=== PATIENT | female | born 1965 | race Caucasian/White ===

== ENCOUNTER 2017-07-10 22:49 | Inpatient (IN) | payer BC ==
[~2017-07-10] VITALS: Ht 157.5 cm; Wt 73.5 kg
[2017-07-10] MEDS ORDERED: ASPIRIN CHEWABLE 81 MG TABLET. PO ONE (23:15)
[2017-07-10] MEDS ORDERED: NITROGLYCERIN OINT 1 GM PACKET. TP ONE (23:15)
[2017-07-10 23:19] LABS: BASO # 0.1 x10^3/uL (0.0-0.2); BASO % 1 % (0-3); EOS % 6 % (0-3); HEMATOCRIT 39.7 % (36.0-47.0); HEMOGLOBIN 13.4 g/dL (12.0-15.5); LYMPH # 2.4 x10^3/uL (1.0-4.8); LYMPH % 33 % (24-48); MEAN CORPUSCULAR HEMOGLOBIN 30 pg (25-35); MEAN CORPUSCULAR HGB CONC 34 g/dL (31-37); MEAN CORPUSCULAR VOLUME 90 fL (79-100); MONO % 6 % (0-9); NEUT % 55 % (31-73); PLATELET COUNT 214 x10^3/uL (140-400); RED BLOOD COUNT 4.41 x10^6/uL (3.50-5.40); RED CELL DISTRIBUTION WIDTH 13.5 % (11.5-14.5); WHITE BLOOD COUNT 7.3 x10^3/uL (4.0-11.0)
[2017-07-10 23:32] LABS: CREATININE 0.8 mg/dL (0.6-1.0); GFR 75.3; POTASSIUM 3.7 mmol/L (3.5-5.1)
[2017-07-10 23:38] LABS: ALBUMIN 3.7 g/dL (3.4-5.0); ALBUMIN/GLOBULIN RATIO 1.2 (1.0-1.7); TOTAL BILIRUBIN 0.2 mg/dL (0.2-1.0); TOTAL PROTEIN 6.9 g/dL (6.4-8.2)
[2017-07-11] VITALS (8 sets, daily range): BP systolic 123–146; BP diastolic 63–79
[2017-07-11] MEDS ORDERED: NITROGLYCERIN SUBLINGUAL 0.4 MG BOTTLE OF 25. SL PRN (00:15)
[2017-07-11] MEDS ORDERED: ONDANSETRON PF 4 MG/2 ML VIAL. IV PRN (00:15)
[2017-07-11] MEDS ORDERED: IBUP-1007 PO (01:12)
--- NOTE | 2017-07-11 01:15 | PHYS DOC ---
Past Medical History Past Medical History: Arrhythmia, Hypertension, Other Additional Past Medical Histor: DDD Additional Past Surgical Histo: METAL NIKOLE TO RIGHT WRIST Alcohol Use: None Drug Use: None Adult General Chief Complaint Chief Complaint: CHEST PAIN HPI HPI Patient is a 52 year old female with no past medical history who presents here today secondary to midsternal chest pressure that's been intermittent since Tuesday. Patient reports she has associated diaphoresis, dizziness, shortness of breath. Patient denies any nausea or radiating pain. Patient has a history of DJD. Patient denies any history of hypertension diabetes lung liver or kidney pals. Patient has no history of CAD or MIs. Patient has no prior surgeries. Patient does not drink or do drugs. Patient is allergic to sulfa. Patient's last menstrual period was August 2016, she is postmenopausal. Patient reports she does smoke cigarettes no family history of coronary disease that she is aware of. Review of systems: Constitutional: Denies fever or chills Eyes: Denies change in visual acuity, redness, or eye pain HENT: Denies nasal congestion or sore throat Respiratory: Denies cough or shortness of breath All other systems were reviewed and found to be within normal limits, except as documented in this note. Physical exam: Constitutional: Well developed, well nourished, no acute distress, non-toxic appearance. HENT: Normocephalic,bilateral external ears normal, oropharynx moist, no oral exudates, nose normal. Eyes: PERRLA, EOMI, conjunctiva normal, no discharge. Neck: Normal range of motion, no tenderness, supple, no stridor. Cardiovascular:Heart rate regular rhythm, no murmur Lungs & Thorax: Bilateral breath sounds clear to auscultation Abdomen: Bowel sounds normal, soft, no tenderness, no masses, no pulsatile masses. Skin: Warm, dry, no erythema, no rash. Back: No tenderness, no CVA tenderness. Extremities: No tenderness, no cyanosis, no clubbing, ROM intact, no edema. Neurologic: Alert and oriented X 3, normal motor function, normal sensory function, no focal deficits noted. Psychologic: Affect normal, judgement normal, mood normal. Chest x-ray: Normal heart, no infiltrates or effusions, as interpreted by ER physician. EKG: Normal sinus rhythm with nonspecific ST-T wave abnormalities no evidence of ST elevation ND. Interpreted by ER physician. Assessment and plan: Unstable angina: This is a 52-year-old female who presents here today secondary to midsternal chest discomfort that's concerning for unstable angina. Patient has no history of coronary disease although she is a smoker, is postmenopausal. Patient is currently chest pain-free. Given her new symptoms I would consider this unstable angina and patient will need to be admitted to the hospital for further cardiac evaluation and evaluation by occupational therapy professor. Patient has been given aspirin and Nitropaste. Patient's enzymes and EKG have been within normal limits as well as her EKG. This has been discussed with the patient as well as my recommendation for admission and she is in total agreement. Current Medications Current Medications Current Medications Medications (Trade) Dose Ordered Sig/Thomas Start Time Stop Time Status Last Admin Dose Admin Aspirin (Children'S Aspirin) 324 mg 1X ONCE 07/10/17 23:15 07/10/17 23:17 DC 07/10/17 23:40 324 MG Nitroglycerin (Nitro-Bid Oint) 1 inch 1X ONCE 07/10/17 23:15 07/10/17 23:17 DC 07/10/17 23:40 1 INCH Allergies Allergies Allergies Coded Allergies Type Severity Reaction Last Updated Verified No Known Drug Allergies 07/10/17 No Current Patient Data Vital Signs Vital Signs Date Time Temp Pulse Resp B/P (MAP) Pulse Ox O2 Delivery O2 Flow Rate FiO2 07/10/17 23:40 78 148/72 07/10/17 23:30 21 98 Room Air 07/10/17 23:17 97.6 97.6 Lab Values Laboratory Tests Test 07/10/17 23:10 White Blood Count 7.3 x10^3/uL (4.0-11.0) Red Blood Count 4.41 x10^6/uL (3.50-5.40) Hemoglobin 13.4 g/dL (12.0-15.5) Hematocrit 39.7 % (36.0-47.0) Mean Corpuscular Volume 90 fL (79-100) Mean Corpuscular Hemoglobin 30 pg (25-35) Mean Corpuscular Hemoglobin Concent 34 g/dL (31-37) Red Cell Distribution Width 13.5 % (11.5-14.5) Platelet Count 214 x10^3/uL (140-400) Neutrophils (%) (Auto) 55 % (31-73) Lymphocytes (%) (Auto) 33 % (24-48) Monocytes (%) (Auto) 6 % (0-9) Eosinophils (%) (Auto) 6 % (0-3) H Basophils (%) (Auto) 1 % (0-3) Neutrophils # (Auto) 4.0 x10^3uL (1.8-7.7) Lymphocytes # (Auto) 2.4 x10^3/uL (1.0-4.8) Monocytes # (Auto) 0.4 x10^3/uL (0.0-1.1) Eosinophils # (Auto) 0.4 x10^3/uL (0.0-0.7) Basophils # (Auto) 0.1 x10^3/uL (0.0-0.2) Sodium Level 141 mmol/L (136-145) Potassium Level 3.7 mmol/L (3.5-5.1) Chloride Level 105 mmol/L (98-107) Carbon Dioxide Level 32 mmol/L (21-32) Anion Gap 4 (6-14) L Blood Urea Nitrogen 12 mg/dL (7-20) Creatinine 0.8 mg/dL (0.6-1.0) Estimated GFR (Cockcroft-Gault) 75.3 BUN/Creatinine Ratio 15 (6-20) Glucose Level 101 mg/dL (70-99) H Calcium Level 9.0 mg/dL (8.5-10.1) Total Bilirubin 0.2 mg/dL (0.2-1.0) Aspartate Amino Transferase (AST) 66 U/L (15-37) H Alanine Aminotransferase (ALT) 138 U/L (14-59) H Alkaline Phosphatase 89 U/L (46-116) Troponin I Quantitative < 0.017 ng/mL (0.000-0.055) Total Protein 6.9 g/dL (6.4-8.2) Albumin 3.7 g/dL (3.4-5.0) Albumin/Globulin Ratio 1.2 (1.0-1.7) Laboratory Tests 07/10/17 23:10 Laboratory Tests 07/10/17 23:10 EKG EKG [] Radiology/Procedures Radiology/Procedures [] Course & Med Decision Making Course & Med Decision Making Pertinent Labs and Imaging studies reviewed. (See chart for details) [] Dragon Disclaimer Dragon Disclaimer This electronic medical record was generated, in whole or in part, using a voice recognition dictation system. Departure Departure Impression: Primary Impression: Unstable angina Disposition: ADMITTED INPATIENT Admitting Physician: Other (reusch) Condition: STABLE Referrals: VIRA REN MD (PCP) ARTEMIO HEWITT MD Jul 11, 2017 01:15
--- NOTE | 2017-07-11 06:07 | EKG ---
[facility] [address] [place] [address] Test Date: 2017-07-10 Test Time: 23:03:42 Pat Name: BRITTANIE TIPTON Department: Room: 262 1 Gender: F Network Security Officer: AMRIT : 1965 Requested By: ARTEMIO HEWITT Order Number: [id number] Reading MD: Be Gillette MD Measurements Intervals [place] Rate: 72 P: 64 DE: 154 QRS: 75 QRSD: 72 T: 48 QT: 362 QTc: 402 Interpretive Statements SINUS RHYTHM Electronically Signed On 07-12-2017 16:38:12 [employer] by Be Gillette MD
[2017-07-11] MEDS: ACETAMINOPHEN 325 MG TABLET. PO PRN ×2 (07:55→18:48)
--- NOTE | 2017-07-11 08:15 | RAD ---
EXAM: Chest one view. HISTORY: Chest pain. COMPARISON: 04/02/2016. FINDINGS: A frontal view of the chest is obtained. There are no confluent infiltrates. The hemidiaphragms are mildly flattened. There is no pneumothorax or pleural effusion. The heart is not enlarged. IMPRESSION: 1. Hyperinflation. Correlate for chronic obstructive pulmonary disease. No confluent infiltrates.
--- NOTE | 2017-07-11 09:41 | PDOC2 ---
EMILY SCHWARZ EXPERIMENTAL WORKER 07/11/17 0941: CARDIAC CONSULT DATE OF CONSULT Date of Consult DATE: 07/11/17 TIME: 09:37 REASON FOR CONSULT Reason for Consult: unstable angina REFERRING PHYSICIAN Referring Physician: Jude SOURCE Source: Chart review, Patient HISTORY OF PRESENT ILLNESS HISTORY OF PRESENT ILLNESS This is a pleasant 53 yo female amditted for complains of chest pain. Reports that this occurred in the evening at work and started having midchest pressure, clammy. No nausea but also pain across her shoulder blades and right shoulder and arm. Reports that this lasted about 20 minutes. This weekend this recurred and was associated with [place]. Never had nausea. Reports no prior CAD, VTE, long distance travel, infection, fever, chills, falls or any injury or heavy lifiting. She does have spinal stenosis throughout her spine and also has metal rods to her RFA. Denies any heartburn, PUD. PAST MEDICAL HISTORY Cardiovascular: HTN (borderline) Pulmonary: No pertinent hx CENTRAL NERVOUS SYSTEM: Other (No pertinent history) GI: No pertinent hx Heme/Onc: No pertinent hx Hepatobiliary: No pertinent hx Psych: No pertinent hx Musculoskeletal: low back pain, Osteoarthritis Rheumatologic: No pertinent hx Infectious disease: No pertinent hx ENT: No pertinent hx Renal/: No pertinent hx Endocrine: No pertinent hx Dermatology: No pertinent hx PAST SURGICAL HISTORY Past Surgical History: Arthroscopy (right arm with metal rods) FAMILY HISTORY Family History noncontributory to CV SOCIAL HISTORY Smoke: <1 pack per day (since she was 15 yo) ALCOHOL: none Drugs: Marijuana Lives: with Family CURRENT MEDICATIONS CURRENT MEDICATIONS Current Medications Medications (Trade) Dose Ordered Sig/Thomas Route PRN Reason Start Time Stop Time Status Last Admin Dose Admin Nitroglycerin (Nitro-Bid Oint) 1 inch 1X ONCE TP 07/10/17 23:15 07/10/17 23:17 DC 07/10/17 23:40 Aspirin (Children'S Aspirin) 324 mg 1X ONCE PO 07/10/17 23:15 07/10/17 23:17 DC 07/10/17 23:40 Acetaminophen (Tylenol) 650 mg PRN Q4HRS PRN PO FEVER 07/11/17 00:15 07/12/17 00:14 07/11/17 07:55 ALLERGIES ALLERGIES: Coded Allergies: No Known Drug Allergies (Unverified , 07/10/17) ROS Review of System 14 point ROS evaluated with pertinent positives noted per HPI PHYSICAL EXAM General: Alert, Oriented X3, Cooperative, No acute distress HEENT: Atraumatic, Mucous membr. moist/pink Lungs: Clear to auscultation, Normal air movement Heart: Regular rate (SR), Normal S1, Normal S2, No murmurs Abdomen: Soft, No tenderness Extremities: No cyanosis, No edema Skin: No breakdown, No significant lesion Neuro: Normal speech, Sensation intact Psych/Mental Status: Mental status NL, Mood NL MUSCULOSKELETAL: Osteoarthritic changes both hands VITALS VITALS Vital Signs Date Time Temp Pulse Resp B/P (MAP) Pulse Ox O2 Delivery O2 Flow Rate FiO2 07/11/17 07:50 Room Air 07/11/17 07:05 97.8 71 16 134/68 (90) 99 97.8 LABS Lab: Laboratory Tests Test 07/10/17 23:10 07/11/17 06:07 White Blood Count 7.3 x10^3/uL (4.0-11.0) Red Blood Count 4.41 x10^6/uL (3.50-5.40) Hemoglobin 13.4 g/dL (12.0-15.5) Hematocrit 39.7 % (36.0-47.0) Mean Corpuscular Volume 90 fL (79-100) Mean Corpuscular Hemoglobin 30 pg (25-35) Mean Corpuscular Hemoglobin Concent 34 g/dL (31-37) Red Cell Distribution Width 13.5 % (11.5-14.5) Platelet Count 214 x10^3/uL (140-400) Neutrophils (%) (Auto) 55 % (31-73) Lymphocytes (%) (Auto) 33 % (24-48) Monocytes (%) (Auto) 6 % (0-9) Eosinophils (%) (Auto) 6 % (0-3) Basophils (%) (Auto) 1 % (0-3) Neutrophils # (Auto) 4.0 x10^3uL (1.8-7.7) Lymphocytes # (Auto) 2.4 x10^3/uL (1.0-4.8) Monocytes # (Auto) 0.4 x10^3/uL (0.0-1.1) Eosinophils # (Auto) 0.4 x10^3/uL (0.0-0.7) Basophils # (Auto) 0.1 x10^3/uL (0.0-0.2) Sodium Level 141 mmol/L (136-145) Potassium Level 3.7 mmol/L (3.5-5.1) Chloride Level 105 mmol/L (98-107) Carbon Dioxide Level 32 mmol/L (21-32) Anion Gap 4 (6-14) Blood Urea Nitrogen 12 mg/dL (7-20) Creatinine 0.8 mg/dL (0.6-1.0) Estimated GFR (Cockcroft-Gault) 75.3 BUN/Creatinine Ratio 15 (6-20) Glucose Level 101 mg/dL (70-99) Calcium Level 9.0 mg/dL (8.5-10.1) Total Bilirubin 0.2 mg/dL (0.2-1.0) Aspartate Amino Transf (AST/SGOT) 66 U/L (15-37) Alanine Aminotransferase (ALT/SGPT) 138 U/L (14-59) Alkaline Phosphatase 89 U/L (46-116) Troponin I Quantitative < 0.017 ng/mL (0.000-0.055) < 0.017 ng/mL (0.000-0.055) Total Protein 6.9 g/dL (6.4-8.2) Albumin 3.7 g/dL (3.4-5.0) Albumin/Globulin Ratio 1.2 (1.0-1.7) ASSESSMENT/PLAN ASSESSMENT/PLAN 1. Chest pain: with typical features. troponin series normal, EKG NSR 2. Obesity 3. Tobaccoism 4. Hx of borderline HTN 5. Marijuana use 6. Likely undiagnosed COPD 7. Hx of spinal stenosis Recommendations 1. TTE. Discussed LHC vs MPI and would prefer MPI. Treadmill MPI today. 2. Lipid panel. 3. SMoking cessation and marijuana abstinence. Problems: MARÍA ELENA MCLEAN MD 07/11/17 1228: CARDIAC CONSULT ALLERGIES ALLERGIES: Coded Allergies: No Known Drug Allergies (Unverified , 07/10/17) ASSESSMENT/PLAN ASSESSMENT/PLAN Pt. seen and examined. 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 Thanks for consultation. Problems: EMILY SCHWARZ APRN Jul 11, 2017 09:41 MARÍA ELENA MCLEAN MD Jul 11, 2017 12:28
[2017-07-11 10:41] LABS: CHOLESTEROL/HDL RATIO 3.9
--- NOTE | 2017-07-11 11:07 | CARD ---
APPROVED REPORT EXAM: Two-dimensional and M-mode echocardiogram with Doppler and color Doppler. Other Information Quality : Average Rhythm : NSR INDICATION Chest Pain 2D DIMENSIONS RVDd2.2 (2.9-3.5cm)Left Atrium(2D)2.9 (1.6-4.0cm) IVSd0.8 (0.7-1.1cm)Aortic Root(2D)2.4 (2.0-3.7cm) LVDd4.4 (3.9-5.9cm)LVOT Diameter2.0 (1.8-2.4cm) PWd0.8 (0.7-1.1cm)LVDs2.7 (2.5-4.0cm) FS (%) 37.9 %SV59.9 ml LVEF(%)68.2 (>50%) Aortic Valve AoV Peak Eh.133.2cm/sAoV VTI25.9cm AO Peak GR.7.1mmHgLVOT Peak Eh.123.4cm/s LVOT VTI 24.40cmAO Mean GR.3mmHg MANDA (VMAX)2.83fs0ILZ (VTI)2.84cm2 Mitral Valve MV E Vnenpznz35.8cm/sMV DECEL VDRB454gj MV A Fytiiqid23.6cm/sMV XMA35ov E/A Ratio1.0MV A Tckegwws774dz MVA (PHT)3.45cm2 TDI E/Lateral E'6.2E/Medial E'7.9 Pulmonary Valve PV Peak Upbpfdvr484.2cm/sPV Peak Grad.4mmHg RVOT VTI18.6cm Tricuspid Valve TR P. Oqmbqewc925kc/sRAP PMJQYIRU8qjSq TR Peak Gr.83zbOqSIXG20rgXp Pulmonary Vein S1 Tppvipza04.5cm/sD2 Consjczf93.2cm/s LEFT VENTRICLE The left ventricle is normal size. There is normal left ventricular wall thickness. Left ventricle sy stolic function is normal. The Ejection Fraction is 55%. There is normal LV segmental wall motion. Th e left ventricular diastolic function and filling is normal for age. There is no ventricular septal d efect visualized. RIGHT VENTRICLE The right ventricle is normal size. The right ventricular systolic function is normal. ATRIA The left atrium size is normal. The right atrium size is normal. The interatrial septum is intact wit h no evidence for an atrial septal defect or patent foramen ovale as noted on 2-D or Doppler imaging. AORTIC VALVE The aortic valve is normal in structure and function. The aortic valve is trileaflet. Doppler and Col or Flow revealed no significant aortic regurgitation. There is no significant aortic valvular stenosi s. MITRAL VALVE The mitral valve is normal in structure and function. There is no mitral valve stenosis. Doppler and Color Flow revealed trace mitral regurgitation. TRICUSPID VALVE The tricuspid valve is normal in structure and function. Doppler and Color Flow revealed trace tricus pid regurgitation. The PA pressure was estimated at 25 mmHg. There is no tricuspid valve stenosis. PULMONIC VALVE The pulmonic valve is not well visualized. Doppler and Color Flow revealed no pulmonic valvular regur gitation. There is no pulmonic valvular stenosis. GREAT VESSELS The aortic root is normal in size. Normal pulmonary venous flow (Doppler). The IVC is normal in size and collapses >50% with inspiration. PERICARDIAL EFFUSION There is no evidence of significant pericardial effusion. Critical Notification Critical Value: No <Conclusion> Left ventricle systolic function is normal. The Ejection Fraction is 55%. There is normal LV segmental wall motion.
[2017-07-11] MEDS ORDERED: FLU VACC QS2017-18 (36MOS+)/PF 0.5 ML SYRINGE. VAX IM ONE (13:00)
--- NOTE | 2017-07-11 13:14 | PDOC1 ---
History and Physical Date of Admission Date of Admission 07/11/17 Identification/Chief Complaint Chief Complaint chest pain Problems: Source Source: Chart review, Patient History of Present Illness History of Present Illness Patient is a 52 year old female with no past medical history who presented to ER with complaint of midsternal chest pressure that's been intermittent since Tuesday. Patient reports she has associated diaphoresis, dizziness, shortness of breath. Patient denies any nausea or radiating pain. Patient has a history of DJD. Patient denies any history of hypertension diabetes lung liver or kidney disease. Patient has no history of CAD or MIs. Patient has no prior surgeries. she lost her insurance last year and just got it back, she used to take narcotic due to arthritis pain but not recently, Patient is allergic to sulfa. Patient's last menstrual period was August 2016, she is postmenopausal. Patient reports she is a smoker no family history of coronary disease that she is aware of. Past Medical History Cardiovascular: HTN (borderline) Pulmonary: COPD CENTRAL NERVOUS SYSTEM: Other (No pertinent history) GI: GERD Hepatobiliary: No pertinent hx Psych: Anxiety, Depression Rheumatologic: Fibromyalgia, Other (DJD) Infectious disease: No pertinent hx ENT: No pertinent hx Renal/: UTI Endocrine: No pertinent hx Dermatology: No pertinent hx Past Surgical History Past Surgical History: Arthroscopy (right arm with metal rods) Family History Family History: Hypertension Social History Smoke: <1 pack per day (since she was 15 yo) ALCOHOL: none Drugs: Marijuana Current Medications Current Medications Current Medications Medications (Trade) Dose Ordered Sig/[facility] Start Time Stop Time Status Last Admin Dose Admin Acetaminophen (Tylenol) 650 mg PRN Q4HRS PRN 07/11/17 00:15 07/12/17 00:14 07/11/17 07:55 650 MG Aspirin (Children'S Aspirin) 324 mg 1X ONCE 07/10/17 23:15 07/10/17 23:17 DC 07/10/17 23:40 324 MG Influenza Virus Vaccine Quadrival (Fluarix Quad [id number] Syringe) 0.5 ml ONCE ONCE 07/11/17 13:00 07/11/17 13:01 DC Nitroglycerin (Nitro-Bid Oint) 1 inch 1X ONCE 07/10/17 23:15 07/10/17 23:17 DC 07/10/17 23:40 1 INCH Nitroglycerin (Nitrostat) 0.4 mg PRN Q5MIN PRN 07/11/17 00:15 07/12/17 00:14 Ondansetron HCl (Zofran) 4 mg PRN Q8HRS PRN 07/11/17 00:15 07/12/17 00:14 Allergies Allergies Allergies Coded Allergies Type Severity Reaction Last Updated Verified No Known Drug Allergies 07/10/17 No ROS Review of System CONSTITUTIONAL: No fever or chills EYES: No recent changes SKIN: No rash or itching CARDIOVASCULAR: see HPI RESPIRATORY: No SOB or cough GASTROINTESTINAL: No nausea, vomiting or abdominal pain NEUROLOGICAL: No headaches or weakness ENDOCRINE: No cold or heat intolerance GENITOURINARY: No urgency or frequency of urination MUSCULOSKELETAL: has chronic back pain and joint pain LYMPHATICS: No enlarged lymph nodes Physical Exam Physical Exam GEN.: No apparent distress. Alert and oriented. HEENT: Head is normocephalic, atraumatic NECK: Supple. LUNGS: Clear to auscultation. HEART: RRR, S1, S2 present. Peripheral pulses intact ABDOMEN: Soft, nontender. Positive bowel sounds. EXTREMITIES: Without any cyanosis. NEUROLOGIC: Normal speech, normal tone PSYCHIATRIC: Normal affect, normal mood. SKIN: No ulcerations Vitals Vitals Vital Signs Date Time Temp Pulse Resp B/P (MAP) Pulse Ox O2 Delivery O2 Flow Rate FiO2 07/11/17 10:30 97.9 71 18 131/77 (95) 100 Room Air 97.9 Labs Labs Laboratory Tests Test 07/10/17 23:10 07/11/17 06:07 White Blood Count 7.3 x10^3/uL (4.0-11.0) Red Blood Count 4.41 x10^6/uL (3.50-5.40) Hemoglobin 13.4 g/dL (12.0-15.5) Hematocrit 39.7 % (36.0-47.0) Mean Corpuscular Volume 90 fL (79-100) Mean Corpuscular Hemoglobin 30 pg (25-35) Mean Corpuscular Hemoglobin Concent 34 g/dL (31-37) Red Cell Distribution Width 13.5 % (11.5-14.5) Platelet Count 214 x10^3/uL (140-400) Neutrophils (%) (Auto) 55 % (31-73) Lymphocytes (%) (Auto) 33 % (24-48) Monocytes (%) (Auto) 6 % (0-9) Eosinophils (%) (Auto) 6 % (0-3) Basophils (%) (Auto) 1 % (0-3) Neutrophils # (Auto) 4.0 x10^3uL (1.8-7.7) Lymphocytes # (Auto) 2.4 x10^3/uL (1.0-4.8) Monocytes # (Auto) 0.4 x10^3/uL (0.0-1.1) Eosinophils # (Auto) 0.4 x10^3/uL (0.0-0.7) Basophils # (Auto) 0.1 x10^3/uL (0.0-0.2) Sodium Level 141 mmol/L (136-145) Potassium Level 3.7 mmol/L (3.5-5.1) Chloride Level 105 mmol/L (98-107) Carbon Dioxide Level 32 mmol/L (21-32) Anion Gap 4 (6-14) Blood Urea Nitrogen 12 mg/dL (7-20) Creatinine 0.8 mg/dL (0.6-1.0) Estimated GFR (Cockcroft-Gault) 75.3 BUN/Creatinine Ratio 15 (6-20) Glucose Level 101 mg/dL (70-99) Calcium Level 9.0 mg/dL (8.5-10.1) Total Bilirubin 0.2 mg/dL (0.2-1.0) Aspartate Amino Transf (AST/SGOT) 66 U/L (15-37) Alanine Aminotransferase (ALT/SGPT) 138 U/L (14-59) Alkaline Phosphatase 89 U/L (46-116) Troponin I Quantitative < 0.017 ng/mL (0.000-0.055) < 0.017 ng/mL (0.000-0.055) Total Protein 6.9 g/dL (6.4-8.2) Albumin 3.7 g/dL (3.4-5.0) Albumin/Globulin Ratio 1.2 (1.0-1.7) Triglycerides Level 117 mg/dL (0-150) Cholesterol Level 214 mg/dL (0-200) LDL Cholesterol, Calculated 136 mg/dL (0-100) VLDL Cholesterol, Calculated 23 mg/dL (0-40) Non-HDL Cholesterol Calculated 159 mg/dL (0-129) HDL Cholesterol 55 mg/dL (40-60) Cholesterol/HDL Ratio 3.9 Laboratory Tests Test 07/10/17 23:10 07/11/17 06:07 White Blood Count 7.3 x10^3/uL (4.0-11.0) Red Blood Count 4.41 x10^6/uL (3.50-5.40) Hemoglobin 13.4 g/dL (12.0-15.5) Hematocrit 39.7 % (36.0-47.0) Mean Corpuscular Volume 90 fL (79-100) Mean Corpuscular Hemoglobin 30 pg (25-35) Mean Corpuscular Hemoglobin Concent 34 g/dL (31-37) Red Cell Distribution Width 13.5 % (11.5-14.5) Platelet Count 214 x10^3/uL (140-400) Neutrophils (%) (Auto) 55 % (31-73) Lymphocytes (%) (Auto) 33 % (24-48) Monocytes (%) (Auto) 6 % (0-9) Eosinophils (%) (Auto) 6 % (0-3) Basophils (%) (Auto) 1 % (0-3) Neutrophils # (Auto) 4.0 x10^3uL (1.8-7.7) Lymphocytes # (Auto) 2.4 x10^3/uL (1.0-4.8) Monocytes # (Auto) 0.4 x10^3/uL (0.0-1.1) Eosinophils # (Auto) 0.4 x10^3/uL (0.0-0.7) Basophils # (Auto) 0.1 x10^3/uL (0.0-0.2) Sodium Level 141 mmol/L (136-145) Potassium Level 3.7 mmol/L (3.5-5.1) Chloride Level 105 mmol/L (98-107) Carbon Dioxide Level 32 mmol/L (21-32) Anion Gap 4 (6-14) Blood Urea Nitrogen 12 mg/dL (7-20) Creatinine 0.8 mg/dL (0.6-1.0) Estimated GFR (Cockcroft-Gault) 75.3 BUN/Creatinine Ratio 15 (6-20) Glucose Level 101 mg/dL (70-99) Calcium Level 9.0 mg/dL (8.5-10.1) Total Bilirubin 0.2 mg/dL (0.2-1.0) Aspartate Amino Transf (AST/SGOT) 66 U/L (15-37) Alanine Aminotransferase (ALT/SGPT) 138 U/L (14-59) Alkaline Phosphatase 89 U/L (46-116) Troponin I Quantitative < 0.017 ng/mL (0.000-0.055) < 0.017 ng/mL (0.000-0.055) Total Protein 6.9 g/dL (6.4-8.2) Albumin 3.7 g/dL (3.4-5.0) Albumin/Globulin Ratio 1.2 (1.0-1.7) Triglycerides Level 117 mg/dL (0-150) Cholesterol Level 214 mg/dL (0-200) LDL Cholesterol, Calculated 136 mg/dL (0-100) VLDL Cholesterol, Calculated 23 mg/dL (0-40) Non-HDL Cholesterol Calculated 159 mg/dL (0-129) HDL Cholesterol 55 mg/dL (40-60) Cholesterol/HDL Ratio 3.9 VTE Prophylaxis Ordered VTE Prophylaxis Devices: No VTE Pharmacological Prophylaxi: No (short stay) Assessment/Plan Assessment/Plan 1-Atypical Chest pain 2-DJD and arthralgia, myalgia 3-high LFT's will check hepatitis and sono 4-GERD 5-COPD 6-borderline HTN 7-tobaccism VIRA REN MD Jul 11, 2017 13:14
--- NOTE | 2017-07-11 14:06 | RAD ---
APPROVED REPORT Test Type: Exercise Stress Nurse/Tech: Nicole Bill R.N. Test Indications: C/P Cardiac History: SMOKER Medications: Zocor Medical History: See Electronic Medical Record Resting ECG: SR Resting Heart Rate: 69 bpm Resting Blood Pressure: 138/77mmHg Pretest Chest Pain: No chest pain Nurse/Tech Notes S1S2, LUNGS CTA Consent: The procedure was explained to the patient in lay terms. Informed consent was witnessed. Poitr quintanilla was entered into [employer]. History and Stress Test performed by RT Ansley (R) (N) Stress Symptoms Dyspnea, dizziness, general weakness, during minute 5 of recovery period pt stated that she was start ing to have some chest pressure scale 5/10 by the time she transported back to her room c/p was down to a 2/10 POST EXERCISE Reason for Termination: Reached target heart rate Target HR: Yes Max HR: 155 bpm 109% of Maximum Predicted HR: 142 bpm Exercise duration: 5:30 min:sec, 2 Stage Exercise capacity: 7METs Max Blood Pressure: 174/92mmHg Blood Pressure response to exercise: Normal blood pressure response during stress. Heart Rate response to exercise: wnl Chest Pain: Yes. see above note Arrhythmia: No. ST Change: No. INTERPRETATION Stress EKG Conclusion: No evidence of stress induced EKG changes. Imaging Protocol IMAGE PROTOCOL: Rest Tc-99m/stress Tc-99m 1 day Rest: Stress: Viability: Radiopharm.Tc99m HqvagkjxdGt78a Sestamibi [id number] 32mCi Img Date 07/11/2017 07/11/2017 Inj-Img [id number]. 60min. Rest Admin Site:IV - Right AntecubitalAdministrator:RT Ansley (Ilsa)(N) Stress Admin Site: IV - Right AntecubitalAdministrator: RT Ansley (R)(N) STRESS DATA End Diast. Vol.67.0mlAv. Heart Rate74.0bpm End Syst. Vol.12.0mlCO Index BSA0.0L/min Myocardial Zwjz277.0gEject. Gwqewrss21.0% Stress Rates Pk. Fill Rate4.18EDV/secLVtime Pk. Fill 198.10msec Pk. Empty Rate5.00ESV/secLVtime Pk. Wkmxy875.66msec 1/3 Pk. Fill2.02EDV/sec Stress Scores Regional WT0.00Summed WT0.00 Regional WM0.00Summed WM0.00 The rest and stress images show normal perfusion, normal contraction and thickening. LV Perf. Quant 17 Seg. SSS0.00 17 Seg. SRS0.00 17 Seg. SDS0.00 Stress Defect Extent (% LAD)0.00Rest Defect Extent (% LAD)0.00Rev. Defect Extent (% LAD)0.00 Stress Defect Extent (% LCX) 0.00Rest Defect Extent (% LCX)0.00Rev. Defect Extent (% LCX)0.00 Stress Defect Extent (% RCA)0.00Rest Defect Extent (% RCA)0.00Rev. Defect Extent (% RCA)0.00 Stress Defect Extent (% CALVIN)0.00Rest Defect Extent (% CALVIN)0.00Rev. Defect Extent (% CALVIN)0.00 Other Information Quality:Good Risk Assessment: Low Risk Conclusion 1. No evidence of EKG changes with stress testing. 2. Normal perfusion at stress/rest. 3. Low risk study. 4. EF > 60%.
[2017-07-11] MEDS ORDERED: ALPRAZolam 0.25 MG TABLET PO PRN (18:45)
[2017-07-12 03:40] VITALS: BP 146/79
[2017-07-12 04:46] LABS: HEMATOCRIT 41.6 % (36.0-47.0); RED BLOOD COUNT 4.6 x10^6/uL (3.50-5.40); RED CELL DISTRIBUTION WIDTH 13.5 % (11.5-14.5); WHITE BLOOD COUNT 7.4 x10^3/uL (4.0-11.0)
[2017-07-12 05:47] LABS: ALBUMIN 3.4 g/dL (3.4-5.0); CALCIUM 8.9 mg/dL (8.5-10.1); CREATININE 0.8 mg/dL (0.6-1.0); GFR 75.3; POTASSIUM 4.3 mmol/L (3.5-5.1); TOTAL BILIRUBIN 0.3 mg/dL (0.2-1.0); TOTAL PROTEIN 6.9 g/dL (6.4-8.2)
--- NOTE | 2017-07-12 07:30 | RAD ---
EXAM: ABDOMINAL ULTRASOUND. HISTORY: Elevated liver enzymes. COMPARISON: None. FINDINGS: Sonographic evaluation of the abdomen was performed. The liver appears normal in parenchymal echotexture. The hyperechoic mass in the right hepatic lobe measures 1.5 x 1.3 cm this most likely represents a benign hemangioma in the absence of known malignancy. The spleen measures 10.3 cm. The gallbladder is unremarkable without evidence of stones, wall thickening or pericholecystic fluid. There is no sonographic Green sign. The common duct measures 4 mm. The visualized portions of the head and body of the pancreas reveal no abnormality. The right kidney measures 10.8 cm. Cortical thickness and echogenicity are preserved. There is no hydronephrosis. The left kidney measures 11.4 cm. Cortical thickness and echogenicity are preserved. There is no hydronephrosis. The visualized portions of the abdominal aorta and inferior vena cava are grossly patent and normal in caliber. IMPRESSION: 1. A 1.5 cm mass in the right hepatic lobe is most consistent with a benign hemangioma in the absence of known malignancy. MRI with and without contrast could more definitively characterize if there is persistent concern.
[2017-07-12 07:48] VITALS: BP 132/72
--- NOTE | 2017-07-12 09:43 | PDOC ---
SUBJECTIVE Subjective She feels better today, discussed the findings of her stress test and echo as well as the abdominal ultrasound OBJECTIVE Vital Signs Vital Signs Date Time Temp Pulse Resp B/P (MAP) Pulse Ox O2 Delivery O2 Flow Rate FiO2 07/12/17 08:00 Room Air 07/12/17 07:48 97.9 67 18 132/72 (92) 98 Room Air 97.9 07/12/17 03:40 97.9 77 16 146/79 (101) 98 Room Air 97.9 07/11/17 23:28 97.7 59 19 133/70 (91) 98 Room Air 97.7 07/11/17 19:35 98.0 60 18 144/77 (99) 97 Room Air 98.0 07/11/17 19:35 Room Air 07/11/17 19:00 97.7 65 18 140/73 (95) 96 Room Air 97.7 07/11/17 14:45 97.4 75 18 123/63 (83) 98 Room Air 97.4 07/11/17 10:30 97.9 71 18 131/77 (95) 100 Room Air 97.9 I & O Intake and Output 07/12/17 07:00 Intake Total 580 ml Output Total 300 ml Balance 280 ml Intake Oral 580 ml Output Urine Total 300 ml # Voids 1 PHYSICAL EXAM Physical Exam Lungs fairly clear Heart with regular rate and rhythm Abdomen soft and nontender Extremities no edema ASSESSMENT/PLAN Assessment/Plan Her chest pain appears to be noncardiac I discussed with the patient discharged today and follow-up in the office where further assessment of the liver lesion can be made after the hepatitis panel is back and compared her liver function test was prior lab value, she is in agreement with the plan Problems: COMMENT Lab Laboratory Tests Test 07/11/17 13:05 07/12/17 04:20 Troponin I Quantitative < 0.017 ng/mL (0.000-0.055) White Blood Count 7.4 x10^3/uL (4.0-11.0) Red Blood Count 4.60 x10^6/uL (3.50-5.40) Hemoglobin 14.0 g/dL (12.0-15.5) Hematocrit 41.6 % (36.0-47.0) Mean Corpuscular Volume 90 fL (79-100) Mean Corpuscular Hemoglobin 31 pg (25-35) Mean Corpuscular Hemoglobin Concent 34 g/dL (31-37) Red Cell Distribution Width 13.5 % (11.5-14.5) Platelet Count 208 x10^3/uL (140-400) Sodium Level 141 mmol/L (136-145) Potassium Level 4.3 mmol/L (3.5-5.1) Chloride Level 105 mmol/L (98-107) Carbon Dioxide Level 30 mmol/L (21-32) Anion Gap 6 (6-14) Blood Urea Nitrogen 15 mg/dL (7-20) Creatinine 0.8 mg/dL (0.6-1.0) Estimated GFR (Cockcroft-Gault) 75.3 BUN/Creatinine Ratio 19 (6-20) Glucose Level 92 mg/dL (70-99) Calcium Level 8.9 mg/dL (8.5-10.1) Total Bilirubin 0.3 mg/dL (0.2-1.0) Aspartate Amino Transf (AST/SGOT) 38 U/L (15-37) Alanine Aminotransferase (ALT/SGPT) 106 U/L (14-59) Alkaline Phosphatase 92 U/L (46-116) Total Protein 6.9 g/dL (6.4-8.2) Albumin 3.4 g/dL (3.4-5.0) Albumin/Globulin Ratio 1.0 (1.0-1.7) VIRA REN MD Jul 12, 2017 09:43
[2017-07-12] MEDS ORDERED: BUSP5TAB PO (10:49)
[2017-07-12] MEDS ORDERED: PANT40TA5 PO (10:49)
--- NOTE | 2017-07-12 10:51 | PDOC3 ---
Discharge Summary* Date of Admission: Jul 10, 2017 Date of Discharge: Jul 12, 2017 Final Diagnosis 1-Atypical Chest pain noncardiac and possibly GI or musculoskeletal 2-DJD and arthralgia, myalgia 3-high LFT's , hemangioma on abdominal ultrasound her hepatitis panel is pending 4-GERD 5-COPD 6-borderline HTN 7-tobaccism CONSULTS Cardiology Procedures Echocardiogram negative, MPI negative, abdominal ultrasound showing liver mass possibly hemangioma MRI can be done if clinically necessary Brief Hospital Course Ms. Roberts is a 52 old female who was admitted with chest pain evaluated by cardiology had an echo and MPI stress test which was negative she was noted to have high liver enzymes her hepatitis test is pending abdominal ultrasound showed liver mass possibly hemangioma since her cardiac workup was negative I discussed with her to be discharged home and follow-up on her liver lesion as outpatient after her hepatitis test is back, she was in agreement with that, she does have anxiety and was started on BuSpar, her blood pressure was borderline but was down later on, Disposition/Orders: D/C to Home CONDITION AT DISCHARGE: Improved Diet: Cardiac Scheduled Buspirone Hcl (Buspirone Hcl), 1 TAB PO BID Pantoprazole Sodium (Pantoprazole Sodium), 1 TAB PO DAILY Scheduled PRN Ibuprofen (Ibuprofen), 600 MG PO PRN Q6HRS PRN for INFLAMMATION, (Reported) FOLLOW UP APPOINTMENT: In the office in one week, check on the hepatitis test, and consider MRI of the liver, she was started on PPI and Buspar Time Spent Total time spent with patient [] minutes for coordination of care, counseling, and education. VIRA REN MD Jul 12, 2017 10:51
[2017-07-12 11:12] VITALS: BP 126/79
[2017-07-12 14:25] LABS: HEP A IGM ABDY Negative (Negative)
== END 2017-07-12 11:40 | disposition home or self-care (01) | DRG 313 ==
LOC: ER 22:49 → 2 SOUTH 07-11 00:09
PROVIDERS: ADMIT Internal Medicine Hematology & Oncology; ATTEND Internal Medicine Hematology & Oncology
DX: R07.89 Other chest pain (principal); E66.9 Obesity, unspecified; F12.90 Cannabis use, unspecified, uncomplicated; F17.210 Nicotine dependence, cigarettes, uncomplicated; F41.9 Anxiety disorder, unspecified; I10 Essential (primary) hypertension; J44.9 Chronic obstructive pulmonary disease, unspecified; K21.9 Gastro-esophageal reflux disease without esophagitis; K76.9 Liver disease, unspecified; M19.90 Unspecified osteoarthritis, unspecified site; M48.00 Spinal stenosis, site unspecified; M79.7 Fibromyalgia; Z82.49 Family history of ischemic heart disease and other diseases of the circulatory system; Z88.2 Allergy status to sulfonamides; Z68.29 Body mass index [BMI] 29.0-29.9, adult
CPT/HCPCS: 36415; 71010; 76700; 78452; 80053; 80061; 80074; 84484; 85025; 85027; 90686; 93005; 93017; 93306; 96374; 96376; A9500; 99285-25

== ENCOUNTER 2019-06-04 20:15 | Emergency (ER) | payer BC ==
[2018-07-23 16:50] VITALS: BP 147/63
[~2019-06-04] VITALS: Ht 157.5 cm; Wt 61.2 kg
[~2019-06-04 20:15] MED LIST: BUSP5TAB PO; COLC0.6T34 PO; IBUP-1007 PO; OXYC1TAB15 PO; PANT40TA77 PO
[2019-06-04] MEDS ORDERED: NAPROXEN 500 MG TABLET PO ONE (21:15)
[2019-06-04] MEDS ORDERED: HYDROcodone/APAP 5/325MG 1 TAB TABLET PO ONE (21:15)
[2019-06-04] MEDS ORDERED: NAPR-514 PO (21:22)
[2019-06-04] MEDS ORDERED: HYDR-3164 PO (21:22)
--- NOTE | 2019-06-04 21:22 | PHYS DOC ---
Past Medical History Past Medical History: Arrhythmia, Hypertension, Other Additional Past Medical Histor: DJD Additional Past Surgical Histo: METAL NIKOLE TO RIGHT WRIST Alcohol Use: None Drug Use: None Adult General Chief Complaint Chief Complaint: KNEE INJURY HPI HPI Patient is a 54 year old female who presents to the ED today complaining of 6 out of 10 left knee pain that began couple hours prior to coming to the ED, patient states she was trying to keep her dog from running outside when she hit her left knee on the couch and twisted the knee. Patient describes the pain as throbbing and intermittent worse on weight bearing. She states elevation alleviates some of the pain. Review of Systems Review of Systems Constitutional: Denies fever or chills [] Musculoskeletal: Reports left knee pain Integument: Denies rash or skin lesions [] Neurologic: Denies headache, focal weakness or sensory changes [] All other systems were reviewed and found to be within normal limits, except as documented in this note. Current Medications Current Medications Current Medications Medications (Trade) Dose Ordered Sig/Thomas Start Time Stop Time Status Last Admin Dose Admin Acetaminophen/ Hydrocodone Bitart (Lortab 5/325) 2 tab 1X ONCE 06/04/19 21:15 06/04/19 21:16 DC Naproxen (Naprosyn) 500 mg 1X ONCE 06/04/19 21:15 06/04/19 21:16 DC Allergies Allergies Allergies Coded Allergies Type Severity Reaction Last Updated Verified Sulfa (Sulfonamide Antibiotics) Allergy Severe 07/11/17 Yes Physical Exam Physical Exam Constitutional: Well developed, well nourished, no acute distress, non-toxic appearance. [] Skin: Warm, dry, no erythema, no rash. [] Back: No tenderness, no CVA tenderness. [] Extremities: Left knee with no obvious deformity, limited range of motion to the left knee due to pain. +2 left pedal pulse. Cap refill less than 2 seconds the left toes. Neurologic: Alert and oriented X 3, normal motor function, normal sensory fu nction, no focal deficits noted. [] Psychologic: Affect normal, judgement normal, mood normal. [] Current Patient Data Vital Signs Vital Signs Date Time Temp Pulse Resp B/P (MAP) Pulse Ox O2 Delivery O2 Flow Rate FiO2 06/04/19 20:47 98.3 66 18 159/70 (99) 99 Room Air 98.3 EKG EKG [] Radiology/Procedures Radiology/Procedures [] Course & Med Decision Making Course & Med Decision Making Pertinent Labs and Imaging studies reviewed. (See chart for details) This is a 54-year-old female patient presenting to the Ed for left knee after twisting the knee. Left knee x-rays interpreted by Dr. Evans negative for any acute findings. Immobilizer applied to the left knee by the inside technical sales representative, neurovascular exam is intact. Ice elevation encouraged. Follow-up with orthopedic doctor in one week if pain continues. Dragon Disclaimer Dragon Disclaimer This electronic medical record was generated, in whole or in part, using a voice recognition dictation system. Departure Departure Impression: Primary Impression: Left knee sprain Disposition: HOME, SELF-CARE Condition: STABLE Referrals: NON,STAFF (PCP) MELLY CORREIA MD follow up in one week Patient Instructions: Knee Sprain Additional Instructions: You were evaluated in the emergency room for knee pain, your knee xrays are negative for any acute findings. Take the prescribed pain medicine as needed for pain. Follow-up with your doctor in 1-2 weeks. Scripts Naproxen (NAPROXEN) 500 Mg Tablet 1 TAB PO BID for pain for 30 Days, #20 TAB 0 Refills Prov: TYLER ROCHA APRN 06/04/19 Hydrocodone/Apap 5-325 (NORCO 5-325 TABLET) 1 Each Tablet 1 TAB PO Q6HRS, #10 TAB Prov: TYLER ROCHA APRN 06/04/19 Problem Qualifiers Primary Impression: Left knee sprain Encounter type: initial encounter Involved ligament of knee: unspecified ligament Qualified Codes: S83.92XA - Sprain of unspecified site of left knee, initial encounter TYLER ROCHA APRN Jun 04, 2019 21:22
--- NOTE | 2019-06-04 22:59 | RAD ---
Left knee x-rays 3 views HISTORY: Left knee pain, fall. FINDINGS: There is a transverse lucency across the trabecular bone of the lateral tibial plateau, while a discrete lucent defect of the articular cortex is not identified to confirm a fracture, these findings raise suspicion of an impacted tibial plateau fracture. Suprapatellar joint soft tissue density likely a joint effusion. No dislocation. The patella and femoral condyles and proximal fibula are intact. IMPRESSION: Trabecular bone lucency of the lateral tibial plateau raising concern for an acute traumatic impacted tibial plateau fracture as described above. This could be further assessed with CT imaging. Electronically signed by: Rico Triana MD (06/04/2019 10:57 PM) [facility]
== END 2019-06-04 21:35 | disposition home or self-care (01) ==
LOC: ER 20:15
DX: S83.92XA Sprain of unspecified site of left knee, initial encounter (principal); I10 Essential (primary) hypertension; Z88.2 Allergy status to sulfonamides; X50.9XXA Other and unspecified overexertion or strenuous movements or postures, initial encounter; Y93.02 Activity, running; Y92.89 Other specified places as the place of occurrence of the external cause; Y99.8 Other external cause status
CPT/HCPCS: 29505; 73562; 99284-25